=== PATIENT | female | born 1975 | race Caucasian/White ===

== ENCOUNTER → 2017-06-06 | Outpatient (CLI) | payer BC, SELFPAY | PROVIDERS: Family Provider Internal Medicine Adolescent Medicine; Visit Provider Nurse Practitioner Family | DX: R01.1 Cardiac murmur, unspecified (principal) | CPT/HCPCS: 93306 ==

== ENCOUNTER → 2019-05-21 12:12 | Outpatient (CLI) | payer BC, SELFPAY ==
--- NOTE | 2019-05-21 12:19 | XR_ITS ---
PROCEDURE: XR FOOT RT MIN 3V CLINICAL INDICATION: ACUTE RT FOOT/ANKLE PAIN after twisting injury COMPARISON: No exams were available for comparison FINDINGS: No fracture or dislocation. No lytic or blastic change. There is normal mineralization. The joint spaces are well-preserved. No significant degenerative/arthritic changes. No erosive changes evident. Other findings:There is a small spur of the calcaneus at the insertion of the plantar tendon. The plantar arch is normal. IMPRESSION: No acute findings. Dictated by: Dr. Ace Bermudez MD 05/21/2019 12:[address] Ace Bermudez MD in [place] 05/21/2019 12:35
--- NOTE | 2019-05-21 12:19 | XR_ITS ---
PROCEDURE: XR ANKLE RT MIN 3V CLINICAL INDICATION: ACUTE RT FOOT/ANKLE PAIN COMPARISON: No exams were available for comparison FINDINGS: There is no significant soft tissue swelling. The medial and lateral malleolus appear intact. Ankle mortise is normal. The talus and calcaneus appear normal except for a tiny spur of the calcaneus at the insertion of the plantar tendon. IMPRESSION: No acute findings. Dictated by: Dr. Ace Bermudez MD 05/21/2019 12:[address] Ace Bermudez MD in [facility] 05/21/2019 12:34
== END ==
PROVIDERS: PCP Nurse Practitioner Family; Visit Provider Nurse Practitioner Family
DX: M79.671 Pain in right foot (principal); M25.571 Pain in right ankle and joints of right foot
CPT/HCPCS: 73610; 73630

== ENCOUNTER → 2019-06-14 10:38 | Outpatient (CLI) | payer BC, SELFPAY ==
--- NOTE | 2019-06-14 10:40 | CT_ITS ---
PROCEDURE: CT SINUS WO CON CLINICAL HISTORY: MAXILLARY SINUSITIS COMPARISON: No exams were available for comparison TECHNIQUE: Axial images obtained with sagittal and coronal reformats. All CT scans at the facility use one or more dose reduction, viz: automated exposure control, ma/kV adjustment per patient size (including targeted exams where dose is matched to indication, i.e. head), or iterative reconstruction technique. FINDINGS: There is total occlusion of the right maxillary sinus likely due to inflammatory fluid. There is occlusion of the OMU right-side. The left maxillary sinus is clear. There is minimal inflammatory changes of the right ethmoid sinuses, left ethmoids are clear. Frontal sinuses are hypoplastic but clear and the sphenoid sinus is clear. There is no significant bony thickening of the right maxillary sinus suggesting at the findings are most likely acute or semi acute. The mastoids are clear bilaterally, both internal auditory canals are normal. IMPRESSION: Prominent inflammatory changes probably acute and semi acute involving the right maxillary sinus and right OMU Dictated by: Dr. Ace Bermudez MD 06/14/2019 11:[address] Ace Bemrudez MD in [facility] 06/14/2019 11:48
== END ==
PROVIDERS: PCP Nurse Practitioner Family; Visit Provider Nurse Practitioner Family
DX: J32.0 Chronic maxillary sinusitis (principal)
CPT/HCPCS: 70486

== ENCOUNTER 2019-10-06 17:39 | Inpatient (IN) | payer BC, SELFPAY ==
--- NOTE | 2019-10-06 13:03 | CT_ITS ---
PROCEDURE: CT ABDOMEN PELVIS WO CON CLINICAL INDICATION: LT FLANK PAIN, HEMATURIA, CHILLS,FEVER COMPARISON: No exams were available for comparison TECHNIQUE: Axial images obtained with sagittal and coronal reformats. All CT scans at the facility use one or more dose reduction, viz: automated exposure control, ma/kV adjustment per patient size (including targeted exams where dose is matched to indication, i.e. head), or iterative reconstruction technique. FINDINGS: LOWER THORAX: No acute finding ABDOMEN & PELVIS: Liver, spleen, adrenal glands have an unremarkable appearance. No hydronephrosis is evident. There is a 2 mm nonobstructing stone in the lower pole of the left kidney. No ureteral calculi. There is some stranding of the peripancreatic fat in the left upper quadrant at the tail the pancreas with minimal blurring of the pancreatic outline consistent with mild acute pancreatitis. No abscess or pancreatic gas evident. There is some slight increased density along the posterior aspect of the gallbladder which could be due to some small stones and/or sludge and may be better evaluated with ultrasound. There are few small retroperitoneal lymph nodes. No evidence of appendicitis or diverticulitis. There is an IUD in place. No pelvic mass or fluid collection evident. No acute bony anomaly. Small amount of gas is noted in the right hip joint and could be due to negative pressure. Subarticular cyst is present in the right acetabular roof. IMPRESSION: 1. Stranding of the peripancreatic fat at the tail the pancreas suggesting mild acute pancreatitis. 2. Nonobstructing left nephrolithiasis. 3. Possible gallbladder sludge or stones. Gallbladder ultrasound may provide further evaluation if clinically desired. Dictated by: Noah Garcia MD 10/06/2019 13:59 Electronically signed by Noah Garcia MD in [place] 10/06/2019 13:59
[2019-10-06 14:12] LABS: Alanine Aminotransferase 38 U/L (12-78); Albumin Level 4.8 g/dl (3.5-5.0); Albumin/Globulin Ratio 1.6 (1.1-1.8); Amylase 36 U/L (30-110); Anion Gap 15.6 mEq/L (5-15); Aspartate Amino Transferase 34 U/L (14-36); Blood Urea Nitrogen 7 mg/dl (7-17); Carbon Dioxide 29 mmol/L (22.0-30.0); Chloride 96 mmol/L (98-107); Estimated Glomerular Filt Rate 108 ml/min (>60); GFR (African American) 130 ML/MIN (>60); Lipase 154 U/L (23-300); Potassium 3.6 mmoL/L (3.5-5.1); Sodium 137 mmol/L (136-145); Total Protein,Serum 7.8 g/dl (6.3-8.2)
[2019-10-06 14:13] LABS: Alkaline Phosphatase 157 U/L (38-126); Bilirubin,Total 1.3 mg/dl (0.2-1.3); Calcium 10.2 mg/dl (8.4-10.2); Glucose 98 mg/dl (74-100)
[2019-10-06 14:16] LABS: Basophils # 0.1 K/mm3 (0-0.2); Basophils % 0.4 % (0.1-2.0); Eosinophils # 0.1 K/mm3 (0.0-0.4); Eosinophils % 0.6 % (0.1-12.0); Hematocrit 39.6 % (37.0-47.0); Hemoglobin 13.2 g/dL (12.2-16.2); Lymphocytes # 1.4 K/mm3 (0.7-4.5); Lymphocytes % 9.8 % (10-50); Mean Corpuscular HGB Conc 33.3 g/dL (31.8-35.4); Mean Corpuscular Hemoglobin 29.6 pg (27.0-31.2); Mean Platelet Volume 9.1 fl (7.4-10.4); Monocytes # 0.4 K/mm3 (0.1-1.0); Monocytes % 2.8 % (1.7-9.3); Neutrophils # 12.6 K/mm3 (1.8-7.8); Neutrophils % 86.4 % (37.0-80.0); Platelet Count 348 K/mm3 (142-424); Red Blood Count 4.44 M/mm3 (4.20-5.40); White Blood Count 14.6 K/mm3 (4.8-10.8)
[2019-10-06 14:18] LABS: MANUAL DIFFERENTIAL MANUAL DIFFERENTIAL (MANUAL DIFF)
[2019-10-06 17:55] VITALS: BP 147/81; PULSE 89; RESP 18; TEMP 36.9; O2SAT 99
[2019-10-06 18:18] VITALS: BMI 35.6
[2019-10-06 18:30] LABS: Lymphocytes % 9 % (10-50); Monocytes % 3 % (2-9); Neutrophils % 88 % (42-76); Platelet Estimate Normal; RBC Morphology Normal; Total Cells Counted 100
[2019-10-06 19:42] VITALS: BP 118/76; PULSE 72; RESP 18; TEMP 36.5; O2SAT 98
--- NOTE | 2019-10-06 19:53 | HMH.HP ---
*Admission Date: 10/06/19 *Chief complaint: Left upper quadrant pain and fever *History of present illness: 44 yr old female initially evaluated in clinic with complaints of left upper quadrant pain over the past week. Pain initially was colicky in nature and tolerable but acute increase in severity over the past 24 hours. New onset fever and vomiting over the past 24 hours as well, Tmax 101.8. Pain is now more sharp and constant and radiates to the left mid-back and left flank. No diarrhea or constipation. Denies urinary symptoms but she does have known history of left nephrolithiasis noted incidentally on old CT abd/pelvis. Urinalysis in the office revealed trace microscopic blood and she was sent for CT abdomen/pelvis as well as lab evaluation. CT imaging revealed stranding around the pancreatic tail consistent with pancreatitis and gallbladder imaging suggests sludge and possible stones. Non-obstructing left nephrolithiasis. Lab evaluation shows leukocytosis, mildly elevated alkaline phosphatase and normal lipase and amylase. Discussed with Dr Hubbard and admitted for IV antibiotics and additional workup. She has no history of pancreatitis. Denies any recent changes in her medications but she did recently start a dietary supplement for ketone-based diet. [facility] History I have reviewed the patient's past medical history: Yes Medical History: Reports:: Gastroesophageal Reflux Disease(GERD), Hypertension Denies:: Cancer, Diabetes Mellitus Type 1, Diabetes Mellitus Type 2, MRSA *Have you ever received a pneumonia vaccine?: No *Have you received a flu vaccine this season?: Yes Other Medical History: Reports: Sinus Problems Laterality Cases: Bilateral: Tonsillectomy Other Surgeries: Yes: , EGD, Other (C-spine) Amputation: No Fractures: No - *Social History Educational Level: Completed College Smoking Status: Never smoker Alcohol Intake: never Substance Use Type: denies use *Occupational Status:: employed Housing: house Household Members: spouse, children *Travel in the last 8 weeks: None Family Hx:: Cancer, Coronary Artery Disease, Hyperlipidemia, Hypertension, Kidney Disease, Stroke Review of Systems - Review of Systems Review of systems:: pertinent systems reviewed and negative unless documented below - Constitutional Reports fever(s), Reports malaise - *Cardiovascular Denies shortness of breath - *Respiratory Reports pain on inspiration, Denies cough - *Gastrointestinal Reports abdominal pain, Reports feeling full early, Reports nausea, Reports vomiting, Denies vomiting blood, Denies loose stools - *Musculoskeletal Reports back pain - Integumentary/Breasts Denies rash Meds Home Medications Medication Instructions Recorded Confirmed Type Cholecalciferol (Vitamin D3) 1,000 unit PO DAILY 02/07/19 10/06/19 History [Vitamin D3 1,000 Unit Cap] Levocetirizine Dihydrochloride 5 mg PO DAILY 02/07/19 10/06/19 History [Xyzal] Losartan/Hydrochlorothiazide 1 each PO DAILY 02/07/19 10/06/19 History [Hyzaar 50-12.5 Tablet] Omeprazole Magnesium [Prilosec Otc 20 mg PO DAILY 02/07/19 10/06/19 History 20mg Tab] hydroCHLOROthiazide [HCTZ 12.5mg 12.5 mg PO DAILY 02/07/19 10/06/19 History cap] polyethylene glycoL 3350 [Miralax 17 gm PO DAILY 10/06/19 10/06/19 History Powder] Allergies Allergy/AdvReac Type Severity Reaction Status Date / Time vancomycin Allergy Verified 08/08/19 10:51 Exam Vital signs and Labs for Last 24 Hours: Temp Pulse Resp BP Pulse Ox 97.7 F 72 18 118/76 98 10/06/19 19:42 10/06/19 19:42 10/06/19 19:42 10/06/19 19:42 10/06/19 19:42 Laboratory Results - last 24 hr 10/06/19 13:18: Sodium 137, Potassium 3.6, Chloride 96 L, Carbon Dioxide 29, Anion Gap 15.6 H, BUN 7, Creatinine 0.60, Estimated GFR 108, Est GFR ( Amer) 130, Glucose 98, Calcium 10.2, Total Bilirubin 1.3, AST 34, ALT 38, Alkaline Phosphatase 157 H, Total Protein 7.8, Albumin
[2019-10-06 20:00] VITALS: O2SAT 98
[2019-10-07 04:00] VITALS: BP 103/62; PULSE 84; RESP 17; TEMP 36.7; O2SAT 97
[2019-10-07 05:11] VITALS: BMI 36.3
--- NOTE | 2019-10-07 05:37 | PC.NURSE ---
Pt rested in long intervals. C/o nausea at start of shift relieved by zofran per AUG. Voiding w/o reported difficulty independently. No other complaints reported. Tenderness to LUQ w/ palpitation.
[2019-10-07 06:05] LABS: Basophils % 0.2 % (0.1-2.0); Eosinophils # 0.2 K/mm3 (0.0-0.4); Eosinophils % 2.2 % (0.1-12.0); Hematocrit 36.3 % (37.0-47.0); Lymphocytes # 1.4 K/mm3 (0.7-4.5); Mean Corpuscular HGB Conc 32.6 g/dL (31.8-35.4); Mean Corpuscular Hemoglobin 29.5 pg (27.0-31.2); Mean Corpuscular Volume 90.5 fl (81-99); Mean Platelet Volume 8.9 fl (7.4-10.4); Monocytes # 0.4 K/mm3 (0.1-1.0); Monocytes % 4.4 % (1.7-9.3); Neutrophils # 7.5 K/mm3 (1.8-7.8); Neutrophils % 78.2 % (37.0-80.0); Platelet Count 308 K/mm3 (142-424); Red Blood Count 4.01 M/mm3 (4.20-5.40); White Blood Count 9.6 K/mm3 (4.8-10.8)
[2019-10-07 06:19] LABS: Hemoglobin 11.8 g/dL (12.2-16.2)
[2019-10-07 06:20] LABS: Chloride 101 mmol/L (98-107); Potassium 3.7 mmoL/L (3.5-5.1); Sodium 138 mmol/L (136-145)
[2019-10-07 06:23] LABS: Alanine Aminotransferase 29 U/L (12-78); Albumin Level 3.7 g/dl (3.5-5.0); Alkaline Phosphatase 123 U/L (38-126); Amylase 38 U/L (30-110); Anion Gap 11.7 mEq/L (5-15); Aspartate Amino Transferase 25 U/L (14-36); Bilirubin,Total 0.9 mg/dl (0.2-1.3); Blood Urea Nitrogen 8 mg/dl (7-17); Carbon Dioxide 29 mmol/L (22.0-30.0); Creatinine Clearance Estimated 165 mL/min (50-200); Estimated Glomerular Filt Rate 108 ml/min (>60); GFR (African American) 130 ML/MIN (>60); Glucose 84 mg/dl (74-100); Lipase 66 U/L (23-300)
[2019-10-07 06:24] LABS: Albumin/Globulin Ratio 1.1 (1.1-1.8); Globulin 3.3 g/dL (1.3-3.2)
[2019-10-07 06:32] LABS: Calcium 8.8 mg/dl (8.4-10.2)
--- NOTE | 2019-10-07 07:31 | HMH.ACPN2 ---
Internal Medicine - PN: Subj *Date: 10/07/19 *Time: 08:55 Interval history: Ms. Hazel did well overnight. Still having left upper quadrant abdominal pain though nausea resolved. Labs this morning reviewed and appear improved with decreasing liver enzymes and improvement in her lipase level. Planning for ultrasound this morning. CT reviewed showing questionable sludge versus stones in gallbladder and stranding around the tail of the pancreas. Patient remains hemodynamically stable, afebrile. Exam Vital signs and Labs for Last 24 Hours: Temp Pulse Resp BP Pulse Ox 98.0 F 84 17 103/62 L 97 10/07/19 04:00 10/07/19 04:00 10/07/19 04:00 10/07/19 04:00 10/07/19 04:00 Laboratory Results - last 24 hr 10/06/19 13:18: Sodium 137, Potassium 3.6, Chloride 96 L, Carbon Dioxide 29, Anion Gap 15.6 H, BUN 7, Creatinine 0.60, Estimated GFR 108, Est GFR ( Amer) 130, Glucose 98, Calcium 10.2, Total Bilirubin 1.3, AST 34, ALT 38, Alkaline Phosphatase 157 H, Total Protein 7.8, Albumin 4.8, Globulin 3.0, Albumin/Globulin Ratio 1.6, Amylase 36, Lipase 154 10/06/19 13:18: WBC 14.6 H, RBC 4.44, Hgb 13.2, Hct 39.6, MCV 89.0, MCH 29.6, MCHC 33.3, RDW 14.0, Plt Count 348, MPV 9.1, Neut % (Auto) 86.4 H, Lymph % (Auto) 9.8 L, Dawson % (Auto) 2.8, Eos % (Auto) 0.6, Baso % (Auto) 0.4, Neut # (Auto) 12.6 H, Lymph # (Auto) 1.4, Dawson # (Auto) 0.4, Eos # (Auto) 0.1, Baso # (Auto) 0.1, Total Counted 100, Neutrophils % (Manual) 88 H, Lymphocytes % (Manual) 9 L, Monocytes % (Manual) 3, Platelet Estimate Normal, RBC Morphology Normal 10/07/19 05:48: WBC 9.6 D, RBC 4.01 L, Hgb 11.8 L D, Hct 36.3 L, MCV 90.5, MCH 29.5, MCHC 32.6, RDW 14.0, Plt Count 308, MPV 8.9, Neut % (Auto) 78.2, Lymph % (Auto) 15.0, Dawson % (Auto) 4.4, Eos % (Auto) 2.2, Baso % (Auto) 0.2, Neut # (Auto) 7.5, Lymph # (Auto) 1.4, Dawson # (Auto) 0.4, Eos # (Auto) 0.2, Baso # (Auto) 0.0 10/07/19 05:48: Sodium 138, Potassium 3.7, Chloride 101, Carbon Dioxide 29, Anion Gap 11.7, BUN 8, Creatinine 0.60, Estimated Creat Clear 165, Estimated GFR 108, Est GFR ( Amer) 130, Glucose 84, Calcium 8.8 D, Total Bilirubin 0.9, AST 25 D, ALT 29, Alkaline Phosphatase 123, Total Protein 7.0, Albumin 3.7 D, Globulin 3.3 H, Albumin/Globulin Ratio 1.1, Amylase 38, Lipase 66 I & O for Last 24 hours: Intake & Output 10/04/19 10/05/19 10/06/19 10/07/19 23:59 23:59 23:59 23:59 Intake Total 1216 / 1216 Output Total 200 / 200 Balance 1016 / 1016 Weight 88.479 kg 89.443 kg Narrative: - Constitutional No acute distress, obese - *Routine HEENT Exam Head: Present: normocephalic Eye: Present: conjunctivae pink ENT: Present: mucous membranes moist - *Routine Neck Exam Present: supple - *Routine Respiratory Exam Present: CTA bilaterally - *Routine Cardiovascular Exam Present: RRR. Absent: murmur - *Routine Abdominal Exam Present: soft, tenderness (Left upper quadrant and left flank), no rebound, minimal guarding - *Routine Extremities Exam Present: pulses intact. Absent: clubbing, edema - *Routine Skin Exam Present: intact, warm. Absent: rash - *Routine Neurological Exam Present: alert, oriented X3 Assessment and Plan (1) Acute pancreatitis Current visit: Yes Status: Acute Category: Medical Code(s): K85.90 - Acute pancreatitis without necrosis or infection, unspecified (2) Leukocytosis Current visit: Yes Status: Acute Category: Medical Code(s): D72.829 - Elevated white blood cell count, unspecified (3) Gallbladder sludge Current visit: Yes Status: Acute Category: Medical Code(s): K82.8 - Other specified diseases of gallbladder (4) Left upper quadrant pain Current visit: Yes Status: Acute Category: Medical Code(s): R10.12 - Left upper quadrant pain (5) Obesity (BMI 30-39.9) Current visit: Yes Status: Chronic Category: Medical Code(s): E66.9 - Obesity, unspecified (6) Left nephrolithiasis Current visit: Yes St
--- NOTE | 2019-10-07 07:35 | P.CONPHA_ITS ---
[facility] Pharmacy VTE Monitoring - Patient Demographics Admission date: 10/07/19 Report Date: 10/07/19 Time: 07:35 Allergies/Adverse Reactions: Patient Allergies vancomycin Allergy (Verified 08/08/19 10:51) Height: 1.57 m Weight: 89.443 kg Patient Problems: Current Active Problems Leukocytosis (Acute) Acute pancreatitis (Acute) Gallbladder sludge (Acute) Left upper quadrant pain (Acute) Obesity (BMI 30-39.9) (Chronic) Left nephrolithiasis (Chronic) - VTE Risk Labs: VTE Related Lab Results Hgb 11.8 g/dL (12.2-16.2) L D 10/07/19 05:48 Hct 36.3 % (37.0-47.0) L 10/07/19 05:48 Plt Count 308 K/mm3 (142-424) 10/07/19 05:48 BUN 8 mg/dl (7-17) 10/07/19 05:48 Creatinine 0.60 mg/dl (0.52-1.04) 10/07/19 05:48 Estimated Creat Clear 165 mL/min (50-200) 10/07/19 05:48 Was VTE Risk Assessment Performed: Yes VTE Score: 6 VTE Risk Level: Moderate Risk Clinical Trial Participant: No - Prophylaxis VTE Prophylaxis Ordered?: Yes Types of VTE Prophylaxis: TEDS Knee High
--- NOTE | 2019-10-07 07:38 | HMH.PHAINT ---
HOME MEDICATION RECONCILIATION COMPLETED USING LIST FROM HOME PHARMACY
[2019-10-07 08:00] VITALS: BP 109/67; PULSE 84; RESP 17; TEMP 36.9; O2SAT 97
--- NOTE | 2019-10-07 08:00 | US_ITS ---
PROCEDURE: US ABDOMEN COMPLETE CLINICAL INDICATION: pancreatitis, gallbladder sludge Left upper quadrant pain with nausea and vomiting, abnormal CT scan COMPARISON: RUQ US RUQ-(ABD LTD)1ORGAN/QUAD/FU from 05/23/2017 CT ABDOMEN PELVIS WO CON from 10/06/2019 FINDINGS: PANCREAS: Pancreas is not well demonstrated and better delineated on the recent abdomen CT. The body head of the pancreas has an unremarkable appearance but the tail the pancreas is not well delineated. LIVER: No focal liver lesions demonstrated. Homogeneous echogenicity. No intrahepatic biliary ductal dilatation evident. There is appropriate direction of blood flow within a non dilated portal vein RIGHT KIDNEY: Unremarkable. Normal size and echogenicity. No hydronephrosis LEFT KIDNEY: Unremarkable. Normal size and echogenicity. No hydronephrosis GALLBLADDER: No shadowing stones are evident. There is however suggestion I small amount sludge versus nonshadowing stones in the gravity dependent portion of the gallbladder. No pericholecystic fluid. Common bile duct is normal at 3 mm. No gallbladder wall thickening AORTA: No evidence of aneurysmal dilatation. SPLEEN: Unremarkable. Normal size and echogenicity ASCITES: None demonstrated. IMPRESSION: 1. There is a small amount of sludge versus nonshadowing tiny stones in the gallbladder. No shadowing stones evident. 2. The tail the pancreas is not well delineated. Dictated by: Noah Garcia MD 10/07/2019 11:51 Electronically signed by Noah Garcia MD in [place] 10/07/2019 11:51
--- NOTE | 2019-10-07 10:54 | PC.NURSE ---
THIS RN RECEIVED A PHONE CALL FROM DR. DAHL OFFICE STATING THAT MD WILL SEE PATIENT 10/08/2019 DUE TO HESHAM NOT BEING IN THE OFFICE TODAY.
[2019-10-07 16:00] VITALS: BP 120/77; PULSE 75; RESP 16; TEMP 36.8; O2SAT 100
[2019-10-07 19:38] VITALS: BP 119/81; PULSE 77; RESP 16; TEMP 36.8; O2SAT 99
--- NOTE | 2019-10-08 01:48 | PC.NURSE ---
A&OX3. PERRLA, [employer] EQUAL BILAT. LUNG SOUNDS CLEAR T/O AUSCULTATION. TOLERATED RA WELL. ABDOMEN NONDISTENDED, HYPERACTIVE BOWEL SOUNDS IN LUQ OF ABDOMEN, SOFT AND MILD TENDERNESS PER PALPATION OF LUQ OF ABDOMEN. PT C/O NAUSEA AT BEGINNING OF SHIFT. PT STATED I WAS DOING GOOD UNTIL I ATE MY CLEAR LIQUID SUPPER TRAY AND EVER SINCE THEN I HAVE GOTTEN BLOATED AND NOW I FEEL NAUSEOUS. ADMINISTERED PRN ZOFRAN PER AUG. PULSES +2, CAP REFILL <3 SEC. INDEPENDENT WITH ADLS. NPO AFTER MIDNIGHT AND IS AWARE OF NEED FOR BATH FOR CONSULT. PT REQUESTED TO TAKE A BATH IN MORNING, PRIOR TO CONSULT. VSS. WILL CONTINUE TO MONITOR.
[2019-10-08 04:00] VITALS: BP 104/63; PULSE 79; RESP 16; TEMP 36.7; O2SAT 97
[2019-10-08 05:00] VITALS: BMI 36.8
[2019-10-08 06:05] LABS: Basophils % 0.3 % (0.1-2.0); Eosinophils # 0.2 K/mm3 (0.0-0.4); Eosinophils % 2.7 % (0.1-12.0); Hematocrit 32.8 % (37.0-47.0); Lymphocytes # 1.7 K/mm3 (0.7-4.5); Lymphocytes % 24.3 % (10-50); Mean Corpuscular HGB Conc 33.5 g/dL (31.8-35.4); Mean Corpuscular Volume 89.7 fl (81-99); Mean Platelet Volume 8.3 fl (7.4-10.4); Monocytes # 0.3 K/mm3 (0.1-1.0); Neutrophils # 4.7 K/mm3 (1.8-7.8); Neutrophils % 68.6 % (37.0-80.0); Platelet Count 297 K/mm3 (142-424); Red Blood Count 3.65 M/mm3 (4.20-5.40); White Blood Count 6.9 K/mm3 (4.8-10.8)
[2019-10-08 06:08] LABS: Chloride 106 mmol/L (98-107); Potassium 3.6 mmoL/L (3.5-5.1); Sodium 140 mmol/L (136-145)
[2019-10-08 06:10] LABS: Blood Urea Nitrogen 5 mg/dl (7-17); Creatinine Clearance Estimated 202 mL/min (50-200); Estimated Glomerular Filt Rate 133 ml/min (>60); GFR (African American) 161 ML/MIN (>60)
[2019-10-08 06:11] LABS: Alanine Aminotransferase 21 U/L (12-78); Albumin Level 3.3 g/dl (3.5-5.0); Albumin/Globulin Ratio 1.1 (1.1-1.8); Alkaline Phosphatase 105 U/L (38-126); Anion Gap 10.6 mEq/L (5-15); Aspartate Amino Transferase 18 U/L (14-36); Bilirubin,Total 0.6 mg/dl (0.2-1.3); Calcium 8.2 mg/dl (8.4-10.2); Carbon Dioxide 27 mmol/L (22.0-30.0); Globulin 2.9 g/dL (1.3-3.2); Glucose 83 mg/dl (74-100); Total Protein,Serum 6.2 g/dl (6.3-8.2)
--- NOTE | 2019-10-08 07:46 | HMH.ACPN2 ---
Internal Medicine - PN: Subj *Date: 10/08/19 *Time: 11:30 Interval history: Patient did well overnight. Did have some intolerance of clear liquid diet with recurrence of her abdominal pain. No vomiting or diarrhea. Remains afebrile. Hemodynamically stable. Reviewed labs this morning, liver enzymes normal. Spoke to gastroenterology yesterday, planning to see patient today. Exam Vital signs and Labs for Last 24 Hours: Temp Pulse Resp BP Pulse Ox 98.1 F 79 16 104/63 L 97 10/08/19 04:00 10/08/19 04:00 10/08/19 04:00 10/08/19 04:00 10/08/19 04:00 Laboratory Results - last 24 hr 10/08/19 05:48: WBC 6.9 D, RBC 3.65 L, Hgb 11.0 L, Hct 32.8 L, MCV 89.7, MCH 30.0, MCHC 33.5, RDW 14.0, Plt Count 297, MPV 8.3, Neut % (Auto) 68.6, Lymph % (Auto) 24.3, Sunflower % (Auto) 4.0, Eos % (Auto) 2.7, Baso % (Auto) 0.3, Neut # (Auto) 4.7, Lymph # (Auto) 1.7, Sunflower # (Auto) 0.3, Eos # (Auto) 0.2, Baso # (Auto) 0.0 10/08/19 05:48: Sodium 140, Potassium 3.6, Chloride 106, Carbon Dioxide 27, Anion Gap 10.6, BUN 5 L D, Creatinine 0.50 L, Estimated Creat Clear 202, Estimated GFR 133, Est GFR ( Amer) 161 D, Glucose 83, Calcium 8.2 L, Total Bilirubin 0.6, AST 18 D, ALT 21 D, Alkaline Phosphatase 105, Total Protein 6.2 L, Albumin 3.3 L D, Globulin 2.9, Albumin/Globulin Ratio 1.1 I & O for Last 24 hours: Intake & Output 10/05/19 10/06/19 10/07/19 10/08/19 23:59 23:59 23:59 23:59 Intake Total 2212 / 2212 1118 / 1118 Output Total 500 / 500 900 / 900 Balance 1712 / 1712 218 / 218 Weight 88.479 kg 89.443 kg 90.917 kg Narrative: - Constitutional No acute distress, obese - *Routine HEENT Exam Head: Present: normocephalic Eye: Present: conjunctivae pink ENT: Present: mucous membranes moist - *Routine Neck Exam Present: supple - *Routine Respiratory Exam Present: CTA bilaterally - *Routine Cardiovascular Exam Present: RRR. Absent: murmur - *Routine Abdominal Exam Present: soft, overall improvement with very minimal tenderness (Left upper quadrant), no rebound or guarding - *Routine Extremities Exam Present: pulses intact. Absent: clubbing, edema - *Routine Skin Exam Present: intact, warm. Absent: rash - *Routine Neurological Exam Present: alert, oriented X3 Assessment and Plan (1) Acute pancreatitis Current visit: Yes Status: Acute Category: Medical Code(s): K85.90 - Acute pancreatitis without necrosis or infection, unspecified (2) Leukocytosis Current visit: Yes Status: Acute Category: Medical Code(s): D72.829 - Elevated white blood cell count, unspecified (3) Gallbladder sludge Current visit: Yes Status: Acute Category: Medical Code(s): K82.8 - Other specified diseases of gallbladder (4) Left upper quadrant pain Current visit: Yes Status: Acute Category: Medical Code(s): R10.12 - Left upper quadrant pain (5) Obesity (BMI 30-39.9) Current visit: Yes Status: Chronic Category: Medical Code(s): E66.9 - Obesity, unspecified (6) Left nephrolithiasis Current visit: Yes Status: Chronic Category: Medical Code(s): N20.0 - Calculus of kidney - Assessment and plan all Dx Assessment and Plan for all problems:: Symptoms appear to be improving. Ultrasound showing sludge for small stones. Gastroenterology consulted, appreciate recommendations. If no plan for intervention such as EGD or ERCP, will advance diet today and assess response. Plan for follow-up with surgery in the outpatient setting to discuss nonemergent cholecystectomy. Continues to require inpatient management for diet advancement and symptom control. Anticipate discharge in the coming 1 to 2 days
[2019-10-08 08:00] VITALS: BP 116/75; PULSE 75; RESP 16; TEMP 36.6; O2SAT 99
--- NOTE | 2019-10-08 12:53 | P.PCN_ITS ---
[facility] Procedure Note Procedure Note:: Gastroenterology Consultation Date of Service-October 08, 2019 History of Present Illness: Mrs. Hazel is a 44-year-old female who presented with left upper quadrant abdominal pain and some low-grade fever. Her T-max was 101.8. This was sharp and radiated into the left flank. She did have some abdominal bloating and nausea. Upon presentation to the hospital she had a CAT scan that showed stranding around the pancreatic tail consistent with pancreatitis. Her imaging did show some sludge and possible stones within the gallbladder. She had a normal lipase and amylase but her alkaline phosphatase was mildly elevated. She had a subsequent ultrasound that showed a 3 mm common bile duct. The patient initially did have an elevated white blood cell count of 14.6 thousand. Her liver chemistries have normalized. Her initial alkaline phosphatase was 157 and she was not jaundiced. This is her first bout of pancreatitis. She reports no use of alcohol. She reports no family history of pancreatitis. Past Medical History: 1. Hypertension 2. Chronic sinusitis Past Surgical History: 1. Tonsillectomy 2. 3. Prior EGD Medications: 1. Hyzaar 2. Prilosec OTC 3. HCTZ 4. MiraLAX ALLERGIES: 1. Vancomycin Social History: The patient reports no use of alcohol or tobacco. Family History: Noncontributory Review of Systems: Physical Exam: Physical Examination: Gen.: The patient is a well-developed well-nourished individual in no acute distress HEENT: Normocephalic/atraumatic extraocular movements are intact anicteric Neck: Supple no lymphadenopathy Chest: Clear to auscultation Cardiovascular: Regular rate and rhythm Abdomen: Normoactive bowel sounds soft with some mild to moderate tenderness in the epigastrium, periumbilical and left upper quadrant, no rebound or guarding, no masses, no Fernández sign no hepatosplenomegaly Extremities: No edema Labs: WBC 14.6, alkaline phosphatase 157, albumin 4.8, total bilirubin 1.3, ALT 38, amylase 36 and lipase 154 Radiology: As above Impression/Plan: 1. Acute pancreatitis and probable gallstone pancreatitis with the mild el evation of alkaline phosphatase that normalized. The patient's ultrasound and CAT scan did not show any biliary ductal dilation and her liver chemistries have normalized. I would recommend elective outpatient cholecystectomy. She will not require ERCP presently. I would consider intraoperative cholangiogram (Dr. Sunny Haywood). Certainly if she has no filling defects cholangiographically, she would not need ERCP. I would consider MRCP or ERCP if she has any recurrent bouts of pancreatitis in the future.
[2019-10-08 16:00] VITALS: BP 141/86; PULSE 83; RESP 16; TEMP 36.6; O2SAT 99
--- NOTE | 2019-10-08 18:55 | PC.NURSE ---
PATIENT HAS TOLERATED DIET WELL. SHE DENIES PAIN OR NAUSEA AT THIS TIME. FLUIDS HAVE BEEN DC. CALL LIGHT WITHIN REACH WILL CONTINUE TO MONITOR.
[2019-10-08 20:00] VITALS: BP 130/71; PULSE 77; RESP 20; TEMP 36.8; O2SAT 97
--- NOTE | 2019-10-09 02:46 | PC.NURSE ---
A&O X4. PT RESTED WELL WITH EYES CLOSED T/O SHIFT WITH NO C/O PAIN. DENIES PAIN UPON ABDOMINAL PALPATION. TOLERATED REGULAR DIET AT DINNER WELL PER DAY SHIFT RN. TOLERATED RA WELL WITH NO C/O SOA. BILATERAL LUNGS NOTED CLEAR UPON AUSCULTATION. REFUSED TEDS. VSS. REMAINS SAFE. CALL LIGHT WITHIN REACH. WILL CONTINUE TO MONITOR.
[2019-10-09 04:00] VITALS: BP 126/74; PULSE 77; RESP 16; TEMP 36.6; O2SAT 97
[2019-10-09 05:00] VITALS: BMI 37.4
[2019-10-09 07:38] VITALS: BP 132/85; PULSE 76; RESP 19; TEMP 36.9; O2SAT 96
--- NOTE | 2019-10-09 08:44 | HMH.DCSUM ---
General - General Admission date:: 10/06/19 Discharge date: 10/09/19 HPI HPI: 44 yr old female initially evaluated in clinic with complaints of left upper quadrant pain over the past week. Pain initially was colicky in nature and tolerable but acute increase in severity over the past 24 hours. New onset fever and vomiting over the past 24 hours as well, Tmax 101.8. Pain is now more sharp and constant and radiates to the left mid-back and left flank. No diarrhea or constipation. Denies urinary symptoms but she does have known history of left nephrolithiasis noted incidentally on old CT abd/pelvis. Urinalysis in the office revealed trace microscopic blood and she was sent for CT abdomen/pelvis as well as lab evaluation. CT imaging revealed stranding around the pancreatic tail consistent with pancreatitis and gallbladder imaging suggests sludge and possible stones. Non-obstructing left nephrolithiasis. Lab evaluation shows leukocytosis, mildly elevated alkaline phosphatase and normal lipase and amylase. Discussed with Dr Hubbard and admitted for IV antibiotics and additional workup. She has no history of pancreatitis. Denies any recent changes in her medications but she did recently start a dietary supplement for ketone-based diet. Hospital Course Hospital Course: Patient was admitted, found to have evidence of gallstone pancreatitis via ultrasonography and CT scan. Patient improved with fluids and bowel rest. GI was consulted, recommended against ERCP given clinical improvement and normalizing enzymes, diet was restarted and patient did well with this. This morning she was doing well, recommended to be discharged home, she will follow-up with surgery as an outpatient for laparoscopic cholecystectomy evaluation along with consideration for intraoperative cholangiogram. She will be discharged on losartan only for blood pressure, HCTZ will be discontinued because of the risk of pancreatitis. We will follow her in office in 1-1/2 weeks. Surgery in the next week or 2. Lasix for as needed edema use. Objective Vital signs: Temp Pulse Resp BP Pulse Ox 98.4 F 76 19 132/85 96 10/09/19 07:38 10/09/19 07:38 10/09/19 07:38 10/09/19 07:38 10/09/19 07:38 no acute distress - *Routine HEENT Exam Head: Present: normocephalic Eye: Present: EOMI, PERRL ENT: Present: mucous membranes moist - *Routine Neck Exam Present: supple - *Routine Respiratory Exam Present: CTA bilaterally - *Routine Cardiovascular Exam Present: RRR - *Routine Abdominal Exam Present: soft, normoactive bowel sounds. Absent: tenderness - *Routine Extremities Exam Absent: cyanosis, clubbing, edema - *Routine Skin Exam Present: warm. Absent: rash - Detailed Eye Exam Eyelids: Bilateral normal inspection Results Labs on day of discharge: Preliminary micro results at discharge 10/06/19 18:30 Blood Culture - Preliminary Blood NO GROWTH AFTER 48 HOURS 10/06/19 18:38 Blood Culture - Preliminary Blood NO GROWTH AFTER 48 HOURS DS: Diagnosis - Discharge Diagnosis (1) Acute pancreatitis Status: Resolved (2) Leukocytosis Status: Resolved (3) Gallbladder sludge Status: Chronic (4) Left upper quadrant pain Status: Resolved (5) Obesity (BMI 30-39.9) Status: Chronic (6) Left nephrolithiasis Status: Chronic (7) Hypertension, essential Status: Chronic Discharge Plan - Patient Discharge Instructions ACTIVITY: Continue current activity DIET: low fat, low cholesterol Patient Instructions: Gallstones, DI for Pancreatitis, DI for Leukocytosis - Follow up Plan Follow up with: Julia Cabrales APRN [Nurse Practitioner] - 10/20/19 9:15 am Sunny Haywood MD [Staff Physician] - 1 week Disposition: Home, Self-Fdc Medications: Home Medications Medication Instructions Recorded Confirmed Type Cholecalciferol (Vitamin D3) 1,000 unit PO DAILY 02/07/19 10/06/19 Wy
== END 2019-10-09 10:28 | disposition home or self-care (01) | DRG 440 ==
PROVIDERS: Internal Medicine Adolescent Medicine; Nurse Practitioner Family; Admitting Provider Internal Medicine Adolescent Medicine; PCP Internal Medicine Adolescent Medicine; Visit Provider Internal Medicine Adolescent Medicine
DX: K85.10 Biliary acute pancreatitis without necrosis or infection (principal); I10 Essential (primary) hypertension; N20.0 Calculus of kidney; Z79.899 Other long term (current) drug therapy
CPT/HCPCS: 36415; 74176; 76700; 80053; 82150; 83690; 85007; 85025; 87040; J1335; J2405

== ENCOUNTER → 2019-11-04 08:22 | Outpatient (CLI) | payer BC, SELFPAY ==
[2019-11-04 08:54] LABS: Basophils % 0.2 % (0.1-2.0); Eosinophils # 0.1 K/mm3 (0.0-0.4); Eosinophils % 1.2 % (0.1-12.0); Hematocrit 39.2 % (37.0-47.0); Hemoglobin 12.5 g/dL (12.2-16.2); Lymphocytes # 1.5 K/mm3 (0.7-4.5); Lymphocytes % 16.8 % (10-50); Mean Corpuscular HGB Conc 31.9 g/dL (31.8-35.4); Mean Corpuscular Hemoglobin 29.1 pg (27.0-31.2); Mean Corpuscular Volume 91.4 fl (81-99); Mean Platelet Volume 8.5 fl (7.4-10.4); Monocytes # 0.3 K/mm3 (0.1-1.0); Monocytes % 3.4 % (1.7-9.3); Neutrophils # 7.2 K/mm3 (1.8-7.8); Neutrophils % 78.2 % (37.0-80.0); Platelet Count 331 K/mm3 (142-424); Red Blood Count 4.29 M/mm3 (4.20-5.40); Red Cell Distribution Width 14.4 % (11.5-17.5); White Blood Count 9.1 K/mm3 (4.8-10.8)
[2019-11-04 08:59] LABS: Chloride 99 mmol/L (98-107); Potassium 3.6 mmoL/L (3.5-5.1); Sodium 136 mmol/L (136-145)
[2019-11-04 09:00] LABS: Urine Pregnancy, HCG Qual. Negative (Negative)
[2019-11-04 09:02] LABS: Alanine Aminotransferase 47 U/L (12-78); Alkaline Phosphatase 141 U/L (38-126); Amylase 44 U/L (30-110); Anion Gap 10.6 mEq/L (5-15); Aspartate Amino Transferase 58 U/L (14-36); Bilirubin,Total 1.1 mg/dl (0.2-1.3); Blood Urea Nitrogen 11 mg/dl (7-17); Calcium 8.9 mg/dl (8.4-10.2); Carbon Dioxide 30 mmol/L (22.0-30.0); Estimated Glomerular Filt Rate 108 ml/min (>60); GFR (African American) 130 ML/MIN (>60); Glucose 93 mg/dl (74-100); Lipase 168 U/L (23-300)
[2019-11-04 09:03] LABS: Albumin Level 4.4 g/dl (3.5-5.0); Albumin/Globulin Ratio 1.6 (1.1-1.8); Globulin 2.8 g/dL (1.3-3.2); Total Protein,Serum 7.2 g/dl (6.3-8.2)
[2019-11-04 09:25] LABS: Coronavirus 19 IgG Antibody Negative (Negative); Coronavirus 19 IgM Antibody Negative (Negative)
== END ==
PROVIDERS: Visit Provider Surgery
DX: Z01.818 Encounter for other preprocedural examination (principal); K82.9 Disease of gallbladder, unspecified; K82.8 Other specified diseases of gallbladder
CPT/HCPCS: 36415; 80053; 81025; 82150; 83690; 85025; 86328

== ENCOUNTER 2019-11-05 08:49 | Day surgery (SDC) | payer BC, SELFPAY ==
--- NOTE | 2019-11-02 09:33 | SUR.PREOP ---
11/02/2019 @ 0933--PHONE CALL MADE TO PATIENT. PATIENT UNDERSTANDS THAT LAB WORK AND COVID TESTING NEEDS TO BE COMPLETED @ 0800 ON 11/04/2019. PATIENT UNDERSTANDS IF LAB WORK AND COVID-19 TESTS ARE NOT COMPLETED BY 12PM ON THAT DATE, THE SURGERY SCHEDULED WILL BE CANCELLED AND RESCHEDULED FOR ANOTHER TIME.
[2019-11-04 10:06] VITALS: BMI 36.3
[2019-11-05] VITALS (12 sets, daily range): BP systolic 112–131; BP diastolic 53–78; PULSE 54–81; RESP 17–19; TEMP 36.2–36.9; O2SAT 96–100
--- NOTE | 2019-11-05 09:36 | P.PN_ITS ---
[facility] Anesthesia Checklist - Patient Identification Patient Identification: Arm Band - Structural Data Admitted From: Home Planned Operative Procedure/s: laparoscopic cholecystectomy with cholangiogram Consent for Planned Operative Procedure(s) Verified: Yes Verified Documents: Surgical Consent, History and Physical - NPO Status Verified Time NPO: 00:00 - Additional verifications Anesthesia Reactions: Yes (n/v) Hx Blood Transfusions: No Blood Transfusion Reaction: No - Airway Assessment C-Spine Mobility Assessed: Yes (mp2) TMJ Mobility Assessed: Yes Dentition: Partials (lower) - Neurological Assessment Level of Consciousness: Awake, Alert - Anesthesia Plan Anesthesia Risk discussed: Yes Anesthesia Plan: Verified ASA Class: II Anesthesia Type: General [facility] History I have reviewed the patient's past medical history: Yes Medical History: Reports:: Gastroesophageal Reflux Disease(GERD), Hypertension Denies:: Cancer, Diabetes Mellitus Type 1, Diabetes Mellitus Type 2, Internal Pacemaker, MRSA, Seizures *Have you ever received a pneumonia vaccine?: No *Have you received a flu vaccine this season?: Yes Other Medical History: Reports: Sinus Problems. Denies: Blood Transfusion Reaction Anesthesia experience/problems:: nac Laterality Cases: Bilateral: Tonsillectomy Other Surgeries: Yes: , EGD, Other. No: Pacemaker Amputation: No Fractures: No - *Social History Educational Level: Completed College Smoking Status: Never smoker Alcohol Intake: never Substance Use Type: denies use *Occupational Status:: employed Housing: house Household Members: family *Travel in the last 8 weeks: None Family Hx:: No significant family history
--- NOTE | 2019-11-05 11:51 | HMH.OPNOTE ---
Date of procedure: 11/05/19 Pre-op Diagnosis:: History of gallstone pancreatitis Post-op Diagnosis:: History of gallstone pancreatitis Chronic calculus cholecystitis Procedure performed:: Laparoscopic cholecystectomy (cholangiogram not performed secondary to inability to safely advance the catheter into position within the cystic duct) Surgeon:: Sunny Haywood MD CLINICAL SOCIAL WORKER:: Bijan Saavedra Anesthesia: GETA Estimated blood loss (mL): 15 Operative findings:: Cholangiogram catheter could not be secured secondary to lack of appropriate flow of dye into cystic duct. Clear visualization of cystic duct lumen; however, multiple attempts at advancing the catheter were not successful. Operative note:: After informed consent was obtained, the patient was taken to the operating room and placed in the supine position. General anesthesia was induced and the abdomen was prepped and draped in a sterile fashion. After infiltration with local anesthetic an infraumbilical incision was made. A Veress needle was placed in position. The abdomen was insufflated. A 5 mm optical trocar was placed in position. Under direct visualization, a 12 mm trocar was placed in the subxiphoid position and 2 additional 5 mm trocars were placed in the right upper quadrant. The gallbladder was elevated up and over the liver margin. The tissue around the cystic duct was carefully dissected. A clip was placed at the infundibulum. The dilator and sheath was introduced through a separate right upper quadrant stab incision. A partial otomy was made. The lumen was clearly visualized. The cholangiogram catheter could not be advanced and this was felt to most likely be secondary to either intraluminal scarring or false passage . After multiple attempts were unsuccessful it was deemed most appropriate to forego cholangiogram. Harmonic rafael were then utilized to dissect the gallbladder away from the liver margin with careful attention to the control of the cystic artery. The gallbladder was placed in a retrieval bag and removed through the subxiphoid trocar site. The right upper quadrant was thoroughly irrigated. No active bleeding or bile leak was noted. Fascia at the subxiphoid trocar site was reapproximated utilizing 0 Ethibond. The remaining trocars were removed. All wounds were irrigated and skin was closed with 4-0 Monocryl in a subcuticular fashion. Steri-Strips were applied. The patient's anesthetic agents were reversed and extubation was completed prior to transfer to recovery in stable condition. Condition: stable Disposition: PACU Specimens:: gallbladder Complications:: No immediate
--- NOTE | 2019-11-05 12:01 | HMH.ANESI ---
[facility] Anesthesia Record Part I Intake, IV Amount: 600 Estimated blood loss (mL): 10 Urine output (mL): 0 Blood Products used (#): none Blood Pressure: 127/73 SaO2: 97 Pulse Rate: 66 Respiratory Rate: 18 Temperature: 97.6 F Patient is:: Drowsy, Stable Stable to PACU at:: 11:58
--- NOTE | 2019-11-05 12:50 | HMH.ANESII ---
[facility] Anesthesia Record Part II Discharge Time: 12:28 Destination: Surgical Day Care (OP Surgery) PACU nurse assessment reviewed?: Yes Patient Condition:: Good Anesthesia Complications:: None Swallowing reflex intact?: Yes Cyanosis?: No Blood Pressure: 119/68 Pulse Rate: 57 Temperature: 98.4 F Mental Status: Alert & Oriented Pain level:: 1 Nausea and/or vomitting:: None Intake, IV Amount: 25
== END 2019-11-05 13:35 | disposition home or self-care (01) ==
LOC: OR 08:51
PROVIDERS: PCP Internal Medicine Adolescent Medicine; Visit Provider Surgery
PROC: (CPT 47563; principal; 2019-11-05 10:30)
DX: K81.2 Acute cholecystitis with chronic cholecystitis (principal); K85.10 Biliary acute pancreatitis without necrosis or infection; Z79.899 Other long term (current) drug therapy; Z88.1 Allergy status to other antibiotic agents; I10 Essential (primary) hypertension; K21.9 Gastro-esophageal reflux disease without esophagitis; Z82.49 Family history of ischemic heart disease and other diseases of the circulatory system; Z84.89 Family history of other specified conditions; Z83.438 Family history of other disorder of lipoprotein metabolism and other lipidemia; Z84.1 Family history of disorders of kidney and ureter; Z82.3 Family history of stroke
CPT/HCPCS: 47563; 96374; J2405

== ENCOUNTER → 2021-05-04 18:57 | Outpatient (CLI) | payer BC, SELFPAY ==
[2021-05-04 19:50] LABS: Chloride 101 mmol/L (98-107); Potassium 4.1 mmoL/L (3.5-5.1); Sodium 139 mmol/L (136-145)
[2021-05-04 19:52] LABS: Alanine Aminotransferase 36 U/L (12-78); Aspartate Amino Transferase 39 U/L (14-36); Blood Urea Nitrogen 15 mg/dl (7-17); Estimated Glomerular Filt Rate 107 ml/min (>60); GFR (African American) 130 ML/MIN (>60)
[2021-05-04 19:53] LABS: Albumin Level 4.2 g/dl (3.5-5.0); Albumin/Globulin Ratio 1.6 (1.1-1.8); Alkaline Phosphatase 126 U/L (38-126); Anion Gap 12.1 mEq/L (5-15); Bilirubin,Total 0.6 mg/dl (0.2-1.3); Calcium 8.7 mg/dl (8.4-10.2); Carbon Dioxide 30 mmol/L (22.0-30.0); Chol/HDL Ratio 3.3 (1-3.5); Cholesterol 174 mg/dl (140-200); Globulin 2.7 g/dL (1.3-3.2); Glucose 91 mg/dl (74-100); HDL Cholesterol 52 mg/dl (40-60); Total Protein,Serum 6.9 g/dl (6.3-8.2); Triglycerides 53 mg/dl (30-150); VLDL Cholesterol 11 mg/dL (0-40)
[2021-05-04 20:04] LABS: Direct LDL Cholesterol 117.92 mg/dL (100-129)
[2021-05-05 00:02] LABS: 25-OH Vitamin D, Total 39.8 ng/mL (30-100)
== END ==
PROVIDERS: Visit Provider Nurse Practitioner Family
DX: Z00.00 Encounter for general adult medical examination without abnormal findings (principal); I10 Essential (primary) hypertension; E55.9 Vitamin D deficiency, unspecified
CPT/HCPCS: 80053; 80061; 82306

== ENCOUNTER → 2021-05-28 16:00 | Outpatient (CLI) | payer BC, SELFPAY ==
--- NOTE | 2021-05-28 16:05 | XR_ITS ---
PROCEDURE: XR KNEE RT 3V CLINICAL INDICATION: PAIN IN RT KNEE COMPARISON: No exams were available for comparison FINDINGS: No fracture or dislocation. No lytic or blastic change. There is normal mineralization. The joint spaces are well-preserved. No significant degenerative/arthritic changes. No erosive changes evident. Other findings:None. IMPRESSION: No acute findings. Dictated by: Noah Garcia MD 05/28/2021 16:57 Noah Garcia MD in OV 05/28/2021 16:57
== END ==
PROVIDERS: PCP Internal Medicine Adolescent Medicine; Visit Provider Internal Medicine Adolescent Medicine
DX: M25.561 Pain in right knee (principal)
CPT/HCPCS: 73562

== ENCOUNTER 2021-07-02 13:00 | Outpatient (RCR) | payer BC, SELFPAY ==
--- NOTE | 2021-05-30 09:31 | HMH.PTOPEV ---
PT Outpatient Evaluation Rehab PT Outpatient Evaluation Start: 05/30/21 06:56 Freq: Status: Active Protocol: Document 05/30/21 06:56 KYLAH (Rec: 05/30/21 09:31 [email or web address] [id number]) Electronically Signed By Sourav Escobar, PT 05/30/21 06:56 Outpatient Therapy Subjective History Subjective History Pt. is a 45 year old female who presents to Outpatient Physical Therapy w/ c/o chronic and constant RLE knee P!, edema, numbness, and ADL/occupational function of traumatic onset since August 2020. Pt. reports she was walking/jogging on her treadmill when she started experiencing P! in her knee. Pt. reports not having symptom relief w/ bracing right after initial DOI. Pt. reports having some symptom relief w/ OTC Motrin, resting, and ice. Pt. reports symptoms worsen w/ prolonged ambulation, standing, and stairs. Pt. also reports symptoms worsen w/ initial standing/first few steps after prolonged sitting. Recent diagnostic imaging( radiograph) negative per pt. report. Pt. denies having injections for current pathology. 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 Current medications include Losartan, Lasix, Motrin, Metoprolol, Xyzal, and Miralax. PMH includes Hypertension, Appendectomy, S/P Sinus Surgery secondary to deviated septum, 2 Sections, Tonsillectomy, Tubal Ligation, and S/P Cervical Vertebrae Osteotomy. Pt. denies history of cancer(self), denies pacemaker, denies latex allergy. Chief Complaint Pain,Stiff,Swelling,Catches/ Locks,Paresthesia,Weakness Symptom Type Ache,Throb,Sharp,Stabbing,
== END 2021-07-30 14:51 | disposition home or self-care (01) ==
LOC: PT.CARL 13:00
PROVIDERS: PCP Internal Medicine Adolescent Medicine; Visit Provider Internal Medicine Adolescent Medicine
DX: M25.561 Pain in right knee (principal)
CPT/HCPCS: 97010; 97014; 97033; 97110; 97140; 97163; 97530; G0283

== ENCOUNTER → 2021-07-17 08:23 | Outpatient (CLI) | payer BC, SELFPAY ==
[2021-07-18 06:11] LABS: Covid-19 Nasal PCR Sendout Lex POSITIVE
== END ==
PROVIDERS: PCP Internal Medicine Adolescent Medicine; Visit Provider Nurse Practitioner
DX: U07.1 COVID-19 (principal)
CPT/HCPCS: C9803; U0004; U0005

== ENCOUNTER → 2021-07-31 07:22 | Outpatient (CLI) | payer BC, SELFPAY ==
--- NOTE | 2021-07-31 07:35 | MR_ITS ---
FINAL REPORT CLINICAL HISTORY: PAIN IN RIGHT KNEE, CHRONIC PAIN. PAIN AND STIFFNESS IN KNEE [id number]. SWELLING INFERIOR TO PATELLA AND ON LATERAL SIDE OF KNEE. MEDIAL SIDED KNEE PAIN. BEEN TO PT. X-RAY 05-28-21 FINDINGS: Multiplanar MR imaging of the right knee was performed without contrast. There is a tear of the posterior horn of the medial meniscus which extends to the posterior root. The lateral meniscus is intact. The anterior and posterior cruciate ligaments are intact. The medial collateral ligament and lateral ligamentous complex are intact. The patellar and quadriceps tendons are intact. There is no evidence of fracture. There is moderate medial compartment chondromalacia. Small joint effusion is seen. The musculature is intact. Small popliteal cyst is noted. IMPRESSION: Tear posterior horn medial meniscus. Moderate medial compartment chondromalacia. Reviewed, Interpreted and Dictated by Oscar Resendiz III, MD Transcribed by Dulce Kan Authenticated by Oscar Resendiz III, MD on 07/31/2021 09:39:47 AM [facility]
== END ==
PROVIDERS: PCP Internal Medicine Adolescent Medicine; Visit Provider Nurse Practitioner Family
DX: M25.561 Pain in right knee (principal); G89.29 Other chronic pain
CPT/HCPCS: 73721

== ENCOUNTER → 2021-09-18 15:07 | Outpatient (CLI) | payer BC, SELFPAY ==
--- NOTE | 2021-09-18 15:11 | XR_ITS ---
FINAL REPORT CLINICAL HISTORY: pre op, hypertension FINDINGS: Two views of the chest were obtained. The heart size and pulmonary vascularity are within normal limits. The mediastinum is normal. No acute pulmonary abnormality is identified. There is no pneumothorax. The bony thorax is intact. IMPRESSION: No active cardiopulmonary disease. Reviewed, Interpreted and Dictated by Oscar Resendiz III, MD Transcribed by Audrey Farley Authenticated by Oscar Resendiz III, MD on 09/18/2021 04:07:[address] [facility]
[2021-09-18 15:20] LABS: Microscopic, Urine URINE MICROSCOPIC (MICROSCOPIC)
[2021-09-18 16:10] LABS: Appearance,Urine CLEAR (Clear); Bilirubin,Urine Negative (Negative); Blood, Urine 1+ (Negative); Color,Urine YELLOW (Yellow); Glucose,Urine (UA) Negative (Negative); Ketones,Urine TRACE (Negative); Leukocyte Esterase,Urine Negative (Negative); Nitrate,Urine Negative (Negative); Protein,Urine Negative (Negative)
[2021-09-18 16:20] LABS: Basophils # 0.1 K/mm3 (0-0.2); Basophils % 0.9 % (0.1-2.0); Eosinophils # 0.2 K/mm3 (0.0-0.4); Eosinophils % 1.4 % (0.1-12.0); Hemoglobin 12.8 g/dL (12.2-16.2); Lymphocytes # 2.2 K/mm3 (0.7-4.5); Lymphocytes % 19.2 % (10-50); Mean Corpuscular HGB Conc 33.6 g/dL (31.8-35.4); Mean Corpuscular Hemoglobin 30.3 pg (27.0-31.2); Mean Corpuscular Volume 90.2 fl (81-99); Mean Platelet Volume 9.2 fl (7.4-10.4); Monocytes # 0.4 K/mm3 (0.1-1.0); Monocytes % 3.6 % (1.7-9.3); Neutrophils # 8.6 K/mm3 (1.8-7.8); Neutrophils % 74.9 % (37.0-80.0); Platelet Count 352 K/mm3 (142-424); Red Blood Count 4.22 M/mm3 (4.20-5.40); Red Cell Distribution Width 13.9 % (11.5-17.5); White Blood Count 11.5 K/mm3 (4.8-10.8)
[2021-09-18 16:43] LABS: Bacteria,Urine 2+ /lpf; WBC,Urine Occasional #/hpf (0-3)
[2021-09-19 13:22] LABS: Urine Pregnancy, HCG Qual. Negative (Negative)
== END ==
PROVIDERS: PCP Internal Medicine Adolescent Medicine; Visit Provider Orthopaedic Surgery
DX: Z01.812 Encounter for preprocedural laboratory examination (principal); Z11.52 Encounter for screening for COVID-19; S83.241D Other tear of medial meniscus, current injury, right knee, subsequent encounter
CPT/HCPCS: 36415; 71046; 81001; 81025; 85025; 87086; 93005; C9803; U0003; U0005

== ENCOUNTER 2021-09-20 10:33 | Day surgery (SDC) | payer BC, SELFPAY ==
[2021-09-19 12:45] VITALS: BMI 36.6
[2021-09-20] VITALS (10 sets, daily range): BP systolic 115–144; BP diastolic 70–97; PULSE 69–84; RESP 16–20; TEMP 36.3–43; O2SAT 96–100
[2021-09-20 11:01] LABS: Urine Pregnancy, HCG Qual. Negative (Negative)
--- NOTE | 2021-09-20 11:16 | P.PN_ITS ---
[facility] Anesthesia Checklist - Patient Identification Patient Identification: Arm Band - Structural Data Admitted From: Home Planned Operative Procedure/s: Phani arthroscopy Consent for Planned Operative Procedure(s) Verified: Yes - NPO Status Verified Time NPO: 00:00 - Additional verifications Anesthesia Reactions: Yes (n/v) Hx Blood Transfusions: No Blood Transfusion Reaction: No - Airway Assessment C-Spine Mobility Assessed: Yes TMJ Mobility Assessed: Yes Dentition: Good Dentition - Neurological Assessment Level of Consciousness: Awake Hx Seizures: No Numbness or tingling in extremities: No - Anesthesia Plan Anesthesia Risk discussed: Yes Anesthesia Plan: Verified ASA Class: II Anesthesia Type: General [facility] History I have reviewed the patient's past medical history: Yes Medical History: Reports:: Gastroesophageal Reflux Disease(GERD), Hypertension Denies:: Cancer, Diabetes Mellitus Type 1, Diabetes Mellitus Type 2, Internal Pacemaker, MRSA, Seizures *Have you ever received a pneumonia vaccine?: No *Have you received a flu vaccine this season?: Yes Other Medical History: Reports: Sinus Problems. Denies: Blood Transfusion Reaction Anesthesia experience/problems:: PONV Laterality Cases: Bilateral: Tonsillectomy Other Surgeries: Yes: Cholecystectomy, , EGD, Other. No: Pacemaker Amputation: No Fractures: No - *Social History Last grade of school completed: Advanced degree Smoking Status: Never smoker Alcohol Intake: never Alcohol Intake Frequency:: a few times a month Substance Use Type: denies use *Occupational Status:: employed Housing: house Household Members: family *Travel in the last 8 weeks: None Family Hx:: No significant family history
--- NOTE | 2021-09-20 15:01 | HMH.ANESI ---
[facility] Anesthesia Record Part I Intake, IV Amount: 1,500 Estimated blood loss (mL): 2 Urine output (mL): 0 Blood Pressure: 122/70 SaO2: 97 Pulse Rate: 81 Respiratory Rate: 20 Temperature: 97.6 F Patient is:: Drowsy, Oral/Nasal airway Stable to PACU at:: 14:58
--- NOTE | 2021-09-20 15:32 | SUR.PHASEI ---
1528- detailed report given to lenka almodovar in post op at this time. 1529- pt in stable condition left in post op with lenka almodovar.
--- NOTE | 2021-09-20 15:48 | HMH.OPNOTE ---
Date of procedure: 09/20/21 Pre-op Diagnosis:: 1. Medial meniscus tear, right knee 2. Osteoarthritis, right knee Post-op Diagnosis:: 1. Complex degenerative tear, Medial meniscus, right knee 2. Osteoarthritis, right knee 3. Pathological medial plica, right knee Procedure performed:: 1. Examination of right knee under anesthesia 2. Partial medial meniscectomy, right knee 3. Chondroplasty, right knee 4. Resection of medial plica, right knee Surgeon:: Robby Campoverde MD Literacy Specialist(s):: Linnea Fung PA-C OFFICE SUPPORT:: Pablo Vasquez (Austin Campos) Anesthesia: LMA Estimated blood loss (mL): 2 Clinical Note:: The patient is a 46-year-old female with RIGHT knee pain following an injury over a year ago which is unresponsive to conservative management and evidence of a medial meniscal tear and early arthritic changes on imaging. Clinically her symptoms are consistent with the above diagnosis. Resection of the torn medial meniscus, chondroplasty and debridement is indicated to relieve the pain and improve function of the knee. Please refer to my office note for full details. Operative findings:: Examination of the RIGHT knee under anesthesia, showed a stable knee joint. There is a small amount of knee joint effusion. Knee range of motion is from 0-130? of flexion. Operative findings showed diffuse grade 2 degenerative changes over the patellofemoral articular surface and grade 2- 3 changes over the medial femoral condyle. A small area of focal full-thickness cartilage loss noted over the medial edge of the trochlea. The lateral compartment is well preserved. The medial meniscus had a complex degenerative tear involving the body and posterior horn. The lateral meniscus was noted to be intact. There is debris and small cartilaginous loose bodies in the knee. The intercondylar notch she is noted to be narrow. The anterior cruciate ligament and posterior cruciate ligaments are intact. A thickened and pathological medial plica was noted. Small amount of debris and mild synovitis was noted. Operative note:: On the day of the procedure the patient and her were met in the preoperative area and positively identified. A physical examination was performed and documented. The limb was marked and initialed by me. I have again discussed the diagnosis, management options including both nonsurgical and surgical. I have discussed the proposed surgical procedure, risks and benefits and alternatives in detail. The complications discussed include but are not limited to infection, injury to nerves and blood vessels, injury to the ligaments and tendons, knee stiffness, arthrofibrosis, incomplete relief, incomplete functional recovery, DVT, PE, CRPS, complications related to anesthesia including heart attack, stroke and even . I have also discussed about the likely need for further surgery in future. I told her that there were no guarantees with surgery; she could be no better or even worse. We also discussed the postoperative recovery and rehabilitation that might be needed. I believe the patient to be well informed with regard to the proposed surgery. I told her that it would take few months for full recovery of the knee after surgery. She expressed a full understanding and wished to proceed with the planned surgery. Patient understood the risks, agreed to proceed with surgery and no guarantees or assurances were given or implied. Patient was brought to the operating room and placed supine on the operating table. All the bony prominences were appropriately padded. A general anesthesia was administered by the metal refiner. A well-padded tourniquet cuff was placed over the right upper thigh. Examination of the right knee under anesthesia was performed. A small amount of knee effusion was noted. Knee range of motion was 0-130 degrees of flexion. Knee joint is noted to be ligamentously stable. The right knee was then prepped and draped in the usual sterile fashi
[2021-09-21 13:06] VITALS: BP 142/80; PULSE 84; TEMP 36.4
--- NOTE | 2021-09-21 13:06 | P.PN_ITS ---
[facility] Anesthesia Record Part II Discharge Time: 15:28 Destination: Surgical Day Care (OP Surgery) PACU nurse assessment reviewed?: Yes Patient Condition:: Good Anesthesia Complications:: None Swallowing reflex intact?: Yes Cyanosis?: No Blood Pressure: 142/80 Pulse Rate: 84 Temperature: 97.5 F Mental Status: Alert & Oriented Pain level:: 0 Nausea and/or vomitting:: None Intake, IV Amount: 0
== END 2021-09-20 15:29 | disposition home or self-care (01) ==
LOC: OR 10:33
PROVIDERS: PCP Internal Medicine Adolescent Medicine; Visit Provider Orthopaedic Surgery
PROC: (CPT 29870; principal; 2021-09-20 11:30)
DX: S83.241A Other tear of medial meniscus, current injury, right knee, initial encounter (principal); M17.11 Unilateral primary osteoarthritis, right knee; M25.561 Pain in right knee; I10 Essential (primary) hypertension; K21.9 Gastro-esophageal reflux disease without esophagitis; Z79.899 Other long term (current) drug therapy; M67.51 Plica syndrome, right knee
CPT/HCPCS: 29881; 29879; 81025; 96374; J2405

== ENCOUNTER 2021-11-07 07:00 | Outpatient (RCR) | payer BC, SELFPAY ==
--- NOTE | 2021-10-03 08:56 | HMH.PTOPEV ---
PT Outpatient Evaluation Rehab PT Outpatient Evaluation Start: 10/03/21 07:57 Freq: Status: Active Protocol: Document 10/03/21 07:57 PDESEROUX (Rec: 10/03/21 08:55 [email or web address] [id number]) Electronically Signed By Sourav Escobar, PT 10/03/21 07:57 Outpatient Therapy Subjective History Subjective History Pt. is a 46 year old female who presents to [facility] Outpatient Physical Therapy Services in [place] for the initial evaluation this date( 10/03/21) w/ c/o acute and constant post-surgical RLE knee P!, stiffness, and edema S/P RLE ATS on 09/20/21. Pt. reports having improvements in the symptom she was having prior to surgery after having the surgery, however, Dr. Campoverde stated there was increased OA in the medial compartment than expected after going in. Pt. describes her current post-surgical symptoms as stiff and a dull ache that worsen w/ prolonged standing and washing dishes and w/ ambulation. Pt. reports having symptom relief w/ resting and icing(3-4x/day for 15-20'). Pt. reports having no post-surgical restrictions per Surgeon. Pt. also reports currently off work, but returning to full duty the first of October. Pt. RTMD . Current medications include Losartan, Lasix, Motrin, Metoprolol, Xyzal, and Miralax. PMH includes Hypertension, Appendectomy, S/ P Sinus Surgery secondary to deviated septum, 2 Sections, Tonsillectomy, Tubal Ligation, and S/P Cervical Vertebrae Osteotomy. Pt. denies history of cancer(self) , denies pacemaker, denies latex allergy. Chief Complaint Pain,Stiff,Swelling,Gives out/ Unstable,Weakness Symptom Typ
== END 2021-11-21 12:58 | disposition home or self-care (01) ==
LOC: PT.CARL 07:00
PROVIDERS: PCP Internal Medicine Adolescent Medicine; Visit Provider Orthopaedic Surgery
DX: S83.241D Other tear of medial meniscus, current injury, right knee, subsequent encounter (principal); M94.261 Chondromalacia, right knee
CPT/HCPCS: 97010; 97014; 97110; 97163; 97530; G0283

== ENCOUNTER → 2022-05-28 08:38 | Outpatient (CLI) | payer BC, SELFPAY | PROVIDERS: PCP Internal Medicine Adolescent Medicine; Visit Provider Internal Medicine Adolescent Medicine | DX: G47.33 Obstructive sleep apnea (adult) (pediatric) (principal); R06.83 Snoring; R40.0 Somnolence | CPT/HCPCS: G0399 ==

== ENCOUNTER → 2023-05-13 08:34 | Outpatient (CLI) | payer BC, SELFPAY ==
--- NOTE | 2023-05-13 08:44 | XR_ITS ---
FINAL REPORT CLINICAL HISTORY: pain in rt heel COMPARISON: None FINDINGS: RIGHT FOOT: Three views show no evidence of acute displaced fracture or dislocation of the visualized bony architecture. The joint spaces appear normal. There is minimal calcaneal spurring present. IMPRESSION: Unremarkable exam. Reviewed, Interpreted and Dictated by Mahamed Pratt MD Transcribed by Svetlana Degroot Authenticated and [facility]
== END ==
PROVIDERS: PCP Internal Medicine Adolescent Medicine; Visit Provider Nurse Practitioner Family
DX: M79.671 Pain in right foot (principal)
CPT/HCPCS: 73630

== ENCOUNTER → 2023-05-20 08:28 | Outpatient (CLI) | payer BC, SELFPAY ==
--- NOTE | 2023-05-20 08:31 | XR_ITS ---
FINAL REPORT CLINICAL HISTORY: Foot Pain FINDINGS: 3 weightbearing views of the left foot were obtained. There is pes planus deformity. There is a plantar calcaneal spur. There is no acute fracture or dislocation. The joint spaces are intact. The soft tissues are unremarkable. IMPRESSION: No acute process. Reviewed, Interpreted and Dictated by Oscar Resendiz III, MD Transcribed by Ethan Marks Authenticated and . [facility]
== END ==
PROVIDERS: PCP Internal Medicine Adolescent Medicine; Visit Provider Podiatrist
DX: M79.672 Pain in left foot (principal)
CPT/HCPCS: 73630

== ENCOUNTER 2023-08-20 14:26 | Outpatient (CLI) | payer BC, SELFPAY ==
--- NOTE | 2023-08-20 14:26 | MR_ITS ---
FINAL REPORT CLINICAL HISTORY: ankle pain/achilles tendinitis FINDINGS: Multiplanar MR imaging of the right ankle was performed without contrast. No fracture is identified. There is mild bone marrow edema in the inferior aspect of the calcaneal tuberosity. A plantar calcaneal spur is present. No osteochondral lesion is identified. The ligaments are intact without evidence of injury. There is mild peroneus longus and posterior tibial tenosynovitis. There is mild enlargement of the distal Achilles tendon consistent with mild Achilles tendinitis. No Achilles tendon tear is identified. There is posterior plantar fasciitis with a moderate partial tear at its insertion and adjacent soft tissue edema. Soft tissue edema is seen in the heel pad. No significant joint effusion is seen. The musculature is intact. There is no evidence of soft tissue mass or cyst. IMPRESSION: Posterior plantar fasciitis with a moderate partial tear and adjacent soft tissue edema. Mild peroneus longus and posterior tibial tenosynovitis. Mild distal Achilles tendinitis without evidence of tear. Authenticated and [facility]
--- NOTE | 2023-08-20 14:26 | MR_ITS ---
FINAL REPORT CLINICAL HISTORY: foot pain FINDINGS: Multiplanar MR imaging of the right foot was performed without contrast. There is abnormal signal in the proximal fourth metatarsal, favor enchondroma. The flexor and extensor tendons are intact. No ligamentous injury is identified. The musculature is intact. There is posterior plantar fasciitis with a moderate partial tear at the insertion. No soft tissue mass or cyst is identified. IMPRESSION: Posterior plantar fasciitis with moderate partial tear at the insertion. Abnormal signal in the proximal fourth metatarsal, favor enchondroma. Reviewed, Interpreted and Dictated by Oscar Resendiz III, MD Transcribed by Shannon Davis Authenticated and [facility]
== END 2023-08-20 23:59 ==
LOC: RAD 14:26
PROVIDERS: PCP Internal Medicine Adolescent Medicine; Visit Provider Nurse Practitioner
DX: M79.671 Pain in right foot (principal); M76.61 Achilles tendinitis, right leg; M62.9 Disorder of muscle, unspecified
CPT/HCPCS: 73718; 73721

== ENCOUNTER 2023-10-29 07:00 | Outpatient (RCR) | payer BC, SELFPAY ==
--- NOTE | 2023-09-03 08:56 | HMH.PTOPEV ---
PT Outpatient Evaluation Rehab PT Outpatient Evaluation Start: 09/03/23 07:07 Freq: Status: Active Protocol: Document 09/03/23 07:07 PDESEROUX (Rec: 09/03/23 08:56 PDESEROUX [id number]) E-signed By Sourav Escobar, PT Outpatient Therapy Subjective History Subjective History Pt. is a 48 year old female who presents to [facility] Outpatient Physical Therapy Services in [place] for the initial evaluation this date(09/03/23) w/ c/o chronic and constant RLE ankle/ft. P!, edema, and limp of traumatic onset since February 2023. Pt. reports initial onset of injury of traumatic origin was secondary to stepping in a hole and twisting the ankle while mowing. Pt. reports the ankle was bothering me some after the [employer]AN [facility]LOS. Pt. then reports in 2022 pt. was descending steps from a pt.'s house when she felt a tear in the back of her heel. Recent diagnostic imaging indicates no fx.(per pt. report), but partial tear of PF and tenosynovitis of peroneal and post. tib. tendons. Pt. reports symptoms worsened going without CAM bt. and w/ exercises for 1.5 month. Pt. reports being instructed to don boot when she is on her feet. 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 Pt. reports having symptom relief for a few days w/ steroid injection. Pt. RTMD 10/06/23. Current medications include Tylenol PRN, GLMP topical cream, Losartan, Lasix, Motrin, Metoprolol, Xyzal, Metamucil, Semaglutide, and Miralax. PMH includes Hypertension, Appendectomy, S/P Sinus Surgery secondary to deviated septum, 2 Sections, Tonsillectomy, Tubal Ligation, S/P RLE knee meniscectomy, and S/P Cervical Vertebrae Osteotomy. New diagnosis of cancer in past 12 No months? Chief Complaint Pain,Stiff,Swelling Symptom Type Ache,Throb,Dull,Burning Symptoms Relieved By Rest/Positioning,Ice,Brace/ Support,Prescription Meds Symptoms Aggravated By Standing,Physical Activity, Walking Prior Functional Limitations None Current Functional Limitations Standing,Walking,Stairs Symptom Description Constant and Continuous, Activity Dependent Level of pain today (0-10) 1 Pain scale - at its best (0-10) 1 Pain scale - at its worst (0-10) 7 Ankle/Foot Eval Gait Observation General Gait Pattern Observation Antalgic Gait,Decrease Weight Bear (R),Decrease Stride Lngth (L) Assistive Device Ambulation Assistive Device None Palpation Tenderness right Ankle/Foot Palpation Findings Tenderness Ankle/Foot Palpation Overall Comment grade 3 +TTP to achilles/ peroneal/post. tib. tendons and PF insertion calca ATF TTP negative PTF TTP positive CF TTP negative Deltoid ligament TTP negative ROM Ankle/Foot Dorsiflexion w/Knee Extended -8 Active Range Motion (degrees) Ankle/Foot Dorsiflexion w/Knee Extended -20 Passive Range (degrees) Ankle/Foot Plantar Flexion Active Range WNL of Motion (degrees) Ankle/Foot Eversion Active Range of 8 Motion (degrees) Ankle/Foot Eversion Passive Range of 12 Motion (degrees) Ankle/Foot Inversion Active Range of WNL Motion (degrees) Ankle/Foot ROM Limitations Soft Tissue Tightness,Muscle Tone,Pain Accessory Movements Ankle Accessory Movements that Elicit Calcaneocuboid [place] Symptoms MMT right Ankle Dorsiflexion Strength Grade 4- Good- Ankle Plantarflexion Strength Grade 4 Good Foot Eversion Strength Grade 4- Good- Foot Inversion Strength Grade 4- Good- Ankle Dorsiflexors Muscle Tone Moderate Hypertonicity Description Special Tests Ankle Anterior Drawer Test Negative Right Ankle Posterior Drawer Test Positive Right Outpatient Therapy Assessment Impairments Problems/Impairmments Palpation Tenderness,Impaired Range of Motion,Impaired Strength,Impaired Gait Pattern ,Impaired Walking,Impaired Standing,Impaired Stair Climbing,Impaired Incline Stepping,Impaired Stepping on Uneven Surface,Impaired Recreational Activities, Impaired Work Activities, Increased Edema,Subjective C/O Pain,Impaired Self Care/Self Management Prognosis Rehab Potential Good Comment w/ HEP compliancy Clinical Impression Consistent with Diagnosis Yes Consistent with R partial PF tear Short Term Goals Number of Weeks 2 Decreased Palpation Tenderness Yes: grade 1-2 +TTP to TTP assessment above Decrease Subjective C/O Pain Yes: worse:10/23 Patient to be Ind w/ HEP Yes Long-Term Goals Number of Weeks 4-6 Decreased Palpation Tenderness Yes: grade 1 +TTP to TTP assessment above Increase Range of Motion Yes: RLE ankle/ft. A/PROM WNL grossly Increase Strength Yes: RLE ankle/ft. MMT scores 4+ to 5/5 grossly Improve Gait Pattern without Assistive Yes Device Increase Ability to Walk Yes Increase Ability to Stand Yes Improve Ability to Climb Stairs Yes Improve Incline Stepping Ability Yes Improve Ability to Step on Uneven Yes Surfaces Return to Recreational Activities Yes: Pt. will return to treadmill amb. for health and wellness w/o difficulty Improve Tolerance to Work Activities Yes Improve LEFI Score Yes Decrease Subjective C/O Pain Yes: worse:1-2/10 Improve Self Care/Self Management Yes Patient to be Ind w/ Advanced HEP Yes Outpatient Therapy Plan of Care Treatment Plan May Include Therapeutic Exercise Including Home Yes Exercise Program Manual Therapy Techniques Yes Neuromuscular Re-education Yes Therapeutic Activities to Return to Yes Previous Functional/Work Level Gait Training Yes ADL/Self Care Education Yes Dry Needling Yes Thermal Modalities Yes Electrical Stimulation Yes Ultrasound/Phonophoresis Yes Iontophoresis Yes Vasopneumatic Compression Pump Yes Massage Yes Eval/Re-Eval Yes Frequency Times per week 2 Duration Number of Weeks 4-6 Addendums This patient is a candidate for social No or vocational rehab? Patient/Guardian verbally acknowledges Yes understanding of treatment program and consents to further treatment? Patient/Guardian verbally acknowledges Yes understanding of diagnosis, prognosis and goals for treatment? Eval Complexity PT Charges 01429 - Low Complexity Shoulder/Elbow Eval Shoulder Objective Measurements Elbow Objective Measurements PHYSICIAN CERTIFICATION: I certify the specified therapy services for Ashlyn Hazel are required, authorized, and reviewed every 30 days.
== END 2023-11-04 17:55 | disposition home or self-care (01) ==
LOC: PT 07:00
PROVIDERS: Visit Provider Podiatrist
DX: M25.571 Pain in right ankle and joints of right foot (principal); S93.491S Sprain of other ligament of right ankle, sequela; M62.9 Disorder of muscle, unspecified; M65.9 Synovitis and tenosynovitis, unspecified
CPT/HCPCS: 97010; 97014; 97035; 97110; 97112; 97140; 97163; 97164; 97530; G0283

== ENCOUNTER 2024-07-14 17:57 | Emergency (ER) | payer BC, SELFPAY ==
[2024-07-14 17:58] VITALS: BP 158/94; PULSE 95; RESP 17; TEMP 36.9; O2SAT 100; BMI 36.6
--- NOTE | 2024-07-14 18:23 | HMH.EDGENADL ---
Discharge Plan Disposition Patient Disposition: Home, Self-Care Condition: Good Prescriptions Prescriptions: No Action omeprazole 20 mg capsule,delayed release(DR/EC) PO methylprednisolone [Medrol (Hans)] 4 mg tablets,dose pack 4 mg PO PER PKG DIR Qty: 21 0RF semaglutide 0.25 mg or 0.5 mg (2 mg/3 mL) pen injector 0.5 mg SQ WEEKLY levocetirizine 5 MG tablet 5 mg PO DAILY furosemide 20 MG tablet 20 mg PO DAILY losartan 100 MG tablet 100 mg PO DAILY metoprolol succinate 25 MG tablet extended release 24 hr 25 mg PO DAILY psyllium husk 0.52 GM capsule 0.52 g PO DAILYDM ibuprofen 200 MG tablet 200 mg PO Q6HP PRN (Reason: Mild To Moderate Pain) polyethylene glycol 3350 119 GM powder 17 g PO DAILY Referrals Follow up/Referrals: Bijan Hubbard MD [Primary Care Provider] - See instructions Activity Restrictions/Add. Instructions Additional Instructions/Restrictions: Continue to take the Zofran or Phenergan at home to help with symptoms. Continue to hydrate well by drinking plenty of fluids, including Pedialyte, sugar-free Gatorade and water. Follow-up with your primary care physician if symptoms continue or if you become concerned for your health for any reason, return to the emergency department for evaluation. Clinical Impressions Clinical Impression: Nausea & vomiting Instructions Patient Instructions: DI for Nausea -- Adult Print Language Print Language: Swedish Discharge ED Provider: Maico [facility] Adult HPI General Chief complaint: Nausea/Vomiting/Diarrhea Stated complaint: nausea vomiting, abd pain Time Seen by Provider: 07/14/24 18:06 Mode of Arrival: Ambulatory Source of Information: Patient Limitations: No Limitations History of Present Illness HPI narrative: Ashlyn Hazel is a 48F with a past medical history of HTN who presents to the emergency department for complaints of nausea and vomiting that began at 0200 this morning. Patient states that she has had multiple episodes of nonbilious nonbloody vomiting that has now turned into dry heaving refractory to Phenergan and Zofran at home. She reports some mild upper abdominal discomfort associated with it but denies any dysuria or hematuria. She denies any constipation or diarrhea. She has not had any fevers and denies any known sick contacts. She does note that she takes semaglutide for weight loss, which she has taken for about a year but had not taken it for about a week due to the pharmacy not having it. She started taking it again last night but is never had any symptoms like this from it. She denies any history of diabetes. Related Data Home Medications ?Medication ?Instructions ?Recorded ?Confirmed levocetirizine 5 mg tablet 5 mg PO DAILY ALLERGIES 02/07/19 10/06/23 polyethylene glycol 3350 17 17 g PO DAILY bowel movements 10/06/19 10/06/23 gram/dose oral powder furosemide 20 mg tablet 20 mg PO DAILY fluid retention 11/04/19 10/06/23 losartan 100 mg tablet 100 mg PO DAILY bp 11/04/19 10/06/23 metoprolol succinate 25 mg 25 mg PO DAILY High blood pressure 09/19/21 10/06/23 tablet,extended release 24 hr psyllium husk 0.52 gram capsule 0.52 g PO DAILYDM bowel habits 09/19/21 10/06/23 ibuprofen 200 mg tablet 200 mg PO Q6HP PRN Mild To 09/20/21 10/06/23 Moderate Pain omeprazole 20 mg capsule,delayed mg PO 06/02/23 10/06/23 release semaglutide 0.25 mg or 0.5 mg (2 0.5 mg SQ WEEKLY 08/25/23 10/06/23 mg/3 mL) subcutaneous pen injector Previous Rx's ?Medication ?Instructions ?Recorded methylprednisolone 4 mg tablets in 4 mg PO PER PKG DIR #21 tabs 06/02/23 a dose pack (Medrol (Hans)) Allergies Allergy/AdvReac Type Severity Reaction Status Date / Time vancomycin Allergy Rash Verified 10/06/23 13:14 [facility] Disclaimer: The information contained in this section may have been updated after the patient was seen, as this information can be updated by other users. Surgical History (Updated 07/14/24 @ 18:40 by Arianne Haynes RN) Hx of tubal ligation Family History Mother Asthma Coronary artery disease Hypertension Kidney disease Grandmother Cancer Grandfather Cancer Father Hypertension Stroke Social History Smoking Status: Never smoker alcohol intake: current alcohol intake frequency: a few times a month substance use type: denies use current occupational status: employed Travel in the last 8 weeks: None household members: family housing: house current occupation: Hospice - RN current occupational exposures/hazards: No caffeine: Yes Have you lived/traveled outside [place] in past 30 days?: No Contact w/someone who lives/traveled outside US past 30 days?: No Exposure to someone with infectious disease in past 14 days?: No Do you have a fever (greater than 100.4 F or 38 C)?: No Have you tested positive for COVID-19: No Exposed to someone with COVID-19 in past 14 days?: No Do you have a sore throat?: No Do you have a cough?: No Do you have any weakness?: No Do you have any diarrhea?: No Are you experiencing any unusual bleeding?: No Do you have any muscle aches/pain?: No Do you have any abdominal pain?: Yes Are you experiencing loss of taste or smell?: No Other Medical History Have you received the Flu Vaccine for this season: Yes Have you received the Pneumonia Vaccine: No ROS Obtained: Yes Systems reviewed as appropriate & no additional complaints except as documented Physical Exam General General appearance: alert and in no apparent distress Head Head exam: atraumatic Eye Eye exam: Present normal appearance ENT ENT exam: Present normal external ear exam Neck Neck exam: Present full ROM Chest Chest inspection: Present symmetric chest wall rise Respiratory Respiratory exam: Present normal lung sounds bilaterally; Absent respiratory distress, wheezes or stridor Cardiovascular Cardiovascular exam: Present regular rate and normal rhythm Abdominal Exam Abdominal exam: Present soft and tenderness (mild epigastric and subcostal tenderness); Absent guarding Extremities Exam Extremities exam: Present normal inspection Back Exam Back exam: Present normal inspection Neurological Exam Neurological exam: Present alert and oriented X3 Psychiatric Psychiatric exam: Present normal affect Skin Skin exam: Present warm and dry Medical Decision Making Medical Records Screening: Per USPSTF and CDC recommendations, given the prevalence of disease in our region, it is our hospital?s policy to screen for HIV and viral Hepatitis for all patients aged 18 and over and those with ongoing risk factors. Mayank Inquiry Pt receiving controlled substance: No Vital Signs: 07/14/24 17:58 07/14/24 19:30 07/14/24 20:58 Temperature 98.4 F 97.9 F Temperature Source Oral Pulse Rate 97 H 87 Pulse Rate [Left Radial] 95 H Respiratory Rate 17 14 20 Blood Pressure 117/77 122/76 Blood Pressure [Right Arm] 158/94 H Blood Pressure Mean [Right Arm] 115 Blood Pressure Source [Right Arm] Automatic Cuff Blood Pressure Position [Right Arm] Sitting 02 Sat by Pulse Oximetry 100 98 Oxygen Delivery Method Room Air Room Air Lab Data Lab Results 07/14/24 18:35: WBC 14.5 H, RBC 4.71, Hgb 13.6, Hct 41.5, MCV 88.1, MCH 28.9, MCHC 32.8, RDW 13.1, Plt Count 352, MPV 10.9 H, Neut % (Auto) 92.4 H, Lymph % (Auto) 5.0 L, [place] % (Auto) 2.0, Eos % (Auto) 0.1, Baso % (Auto) 0.1, Neut # (Auto) 13.4 H, Lymph # (Auto) 0.7, [place] # (Auto) 0.3, Eos # (Auto) 0.0, Baso # (Auto) 0.0, Total Counted 100, Neutrophils % (Manual) 93 H, Lymphocytes % (Manual) 6 L, Monocytes % (Manual) 1 L, Platelet Estimate Normal, Hypochromasia 1+, Ovalocytes 1+, Sodium 139, Potassium 4.4, Chloride 102, Carbon Dioxide 27, Anion Gap 14.4, BUN 16, Creatinine 0.50 L, Estimated Creat Clear 193, Estimated GFR 131, Est GFR ( Amer) 158, Glucose 140 H, Calcium 9.7, Total Bilirubin 1.2, AST 43 H, ALT 61, Alkaline Phosphatase 206 H, Troponin I < 0.01, Total Protein 8.0, Albumin 4.8, Globulin 3.2, Albumin/Globulin Ratio 1.5, Lipase 43, Serum HCG, Qual Negative, HCV Ab ЕКАТЕРИНА w/Rflx PCR Qn Negative, HIV Ag/Ab Combo Qual Negative 07/14/24 18:35 07/14/24 18:35 Orders (Tests/Meds): ED MEDICATIONS Discontinued Medications Generic Name Dose Route Start Last Admin Trade Name Freq PRN Reason Stop Dose Admin Diphenhydramine HCl 25 mg 07/14/24 19:02 07/14/24 19:13 Diphenhydramine 50mg/Ml Vial IV 07/14/24 19:03 25 mg ONCE ONE Administration Droperidol 2.5 mg 07/14/24 19:02 07/14/24 19:13 Droperidol 5mg/2ml Vial IV 07/14/24 19:03 2.5 mg ONCE ONE Administration Lactated Ringer's 1,000 mls @ 999 mls/hr 07/14/24 18:22 07/14/24 18:49 Lactated Ringer's 1000 Ml Bag IV 07/14/24 19:22 999 mls/hr .Q1H1M ONE Administration Ondansetron HCl 4 mg 07/14/24 18:22 07/14/24 18:49 Ondansetron 4mg/2ml Vial IV 07/14/24 18:23 4 mg ONCE ONE Administration ORDERS Category Date Time Status CBC w/Auto Diff [Complete Blood Count Auto Diff] Stat Lab 07/14/24 18:35 Completed CMP [Comprehensive Metabolic Panel] Stat Lab 07/14/24 18:35 Completed HIV Combo Stat Lab 07/14/24 18:35 Completed Hepatitis C Ab Qual. W/ RFX Stat Lab 07/14/24 18:35 Completed Lipase Stat Lab 07/14/24 18:35 Completed Serum [HCG Qualitative, Serum] Stat Lab 07/14/24 18:35 Completed Troponin I Stat Lab 07/14/24 18:35 Completed ECG Data Tracing #1: I reviewed this ECG and interpreted as documented below: EKG interpreted by me personally at 1903. No ST elevation or elevation. Normal sinus rhythm. No ST elevation or depression. QTc 412. Medical Decision Narrative: Ashlyn Hazel is a 48-year-old female with a past medical history of hypertension, cholecystectomy who presents to the emergency department for complaints of nausea and vomiting. Patient states that she developed nonbilious nonbloody vomiting at 0200 this morning and said multiple episodes since. She is now dry heaving. She has tried Phenergan and Zofran at home without relief. She states that this has happened a couple times in the past but resolved with antiemetics. She does note that she started her semeglutide last night after being off of it for about a week but has never had symptoms like this in the past from it. Patient reports some mild upper abdominal discomfort but denies any chest pain or shortness of breath. She states that she occasionally drinks alcohol and does not do any recreational drug use, including marijuana. On report, patient's pulse is 95 bpm, mildly hypertensive with blood pressure 158/94, breathe comfortably on room air with oxygen saturation at 100% SpO2. Afebrile. On exam, patient appears ill but nontoxic. She has mild subcostal tenderness bilaterally and mild epigastric tenderness. Abdomen is soft and nonperitoneal neck. Cardiopulmonary exam is unremarkable. Differential diagnosis includes, but is not limited to: Viral gastritis, peptic ulcer disease, acute pancreatitis, ACS, among others. Patient's workup in the emergency department included: Lipase, CBC with differential, CMP, test, EKG, troponin. Patient was treated with 1 L of lactated ringer and 4 mg of IV Zofran for symptomatic relief. Considerations were given to obtaining CT abdomen pelvis with IV contrast, however patient was not significantly tender on exam is felt that radiation exposure outweighs potential benefits at this time. This was discussed with the patient she was in agreement to defer CT imaging at this time. Patient's workup demonstrated non-specific leukocytosis of 14.5 with left shift, CMP unremarkable and non-actionable with no HUMZA or electrolyte derangements. Normal anion gap. Mildly elevated AST of 43. Troponin <0.01, lipase normal at 43, negative test. See EKG interpretation above. Patient continued to have some n/v and was given IV droperidol 2.5mg and 25mg of Benadryl. Patient had significant relief of her symptoms after this. Given this and her unremarkable workup here in the ED, she is appropriate for discharge. She was encouraged to continue antiemetics at home as well as aggressive hydration. Plan to follow up with her PCP. All questions were answered. She was in agreement with this plan. She was then discharged from the emergency department in stable condition. Critical Care Critical Care Time Critical Care Time: No
[2024-07-14 18:44] LABS: Basophils % 0.1 % (0.1-2.0); Eosinophils % 0.1 % (0.1-12.0); Hematocrit 41.5 % (37.0-47.0); Hemoglobin 13.6 g/dL (12.2-16.2); Lymphocytes # 0.7 K/mm3 (0.7-4.5); Mean Corpuscular HGB Conc 32.8 g/dL (31.8-35.4); Mean Corpuscular Hemoglobin 28.9 pg (27.0-31.2); Mean Corpuscular Volume 88.1 fl (81-99); Mean Platelet Volume 10.9 fl (7.4-10.4); Monocytes # 0.3 K/mm3 (0.1-1.0); Neutrophils # 13.4 K/mm3 (1.8-7.8); Neutrophils % 92.4 % (37.0-80.0); Platelet Count 352 K/mm3 (142-424); Red Blood Count 4.71 M/mm3 (4.20-5.40); Red Cell Distribution Width 13.1 % (11.5-17.5); White Blood Count 14.5 K/mm3 (4.8-10.8)
[2024-07-14 18:46] LABS: MANUAL DIFFERENTIAL MANUAL DIFFERENTIAL (MANUAL DIFF)
[2024-07-14] MEDS: ONDANSETRON 4MG/2ML VIAL 4 MG IV (18:49)
[2024-07-14] MEDS: LACTATED RINGERS 1000ML 1,000 ML 999 ML IV (18:49)
[2024-07-14 18:52] LABS: Albumin Level 4.8 g/dl (3.5-5.0); Chloride 102 mmol/L (98-107); Potassium 4.4 mmoL/L (3.5-5.1); Sodium 139 mmol/L (136-145)
[2024-07-14 18:54] LABS: Alanine Aminotransferase 61 U/L (12-78); Aspartate Amino Transferase 43 U/L (14-36); Blood Urea Nitrogen 16 mg/dl (7-17); Creatinine Clearance Estimated 193 mL/min (50-200); Estimated Glomerular Filt Rate 131 ml/min (>60); GFR (African American) 158 ML/MIN (>60); Hypochromasia 1+; Lymphocytes % 6 % (10-50); Monocytes % 1 % (2-9); Neutrophils % 93 % (42-76); Ovalocytes 1+; Platelet Estimate Normal; Total Cells Counted 100
[2024-07-14 18:55] LABS: Albumin/Globulin Ratio 1.5 (1.1-1.8); Alkaline Phosphatase 206 U/L (38-126); Anion Gap 14.4 mEq/L (5-15); Bilirubin,Total 1.2 mg/dl (0.2-1.3); Calcium 9.7 mg/dl (8.4-10.2); Carbon Dioxide 27 mmol/L (22.0-30.0); Globulin 3.2 g/dL (1.3-3.2); Glucose 140 mg/dl (74-100); Lipase 43 U/L (23-300)
--- NOTE | 2024-07-14 18:59 | ECG_ITS ---
APPROVED REPORT Exam: Resting ECG HR:94 bpm ECG Measurements Heart Rate 94 AXES CA 216 P 22 QRSd 86 QRS -12 QT 361 T 0 QTc 412 Conclusion SINUS RHYTHM WITH FIRST DEGREE AV BLOCK WITH OCCASIONAL SUPRAVENTRICULAR PREMATURE COMPLEXES LOW QRS VOLTAGE IN PRECORDIAL LEADS [QRS DEFLECTION < 1.0 mV IN CHEST LEADS] MINIMAL VOLTAGE CRITERIA FOR LVH, CONSIDER NORMAL VARIANT [MEETS CRITERIA IN ONE OF: R(aVL), S(V1), R(V5), R(V5/V6)+S(V1)] POSSIBLE ANTERIOR MYOCARDIAL INFARCTION , PROBABLY OLD [30 ms Q WAVE IN V3/V4, OR R < 0.2 mV IN V4] ABNORMAL ECG UNCONFIRMED REPORT Electronically signed by : KEON DAVALOS, 07/17/2024 00:44:02
[2024-07-14 19:08] LABS: Troponin I < 0.01 ng/ml (0.00-0.034)
[2024-07-14] MEDS: droPERidol 5MG/2ML VIAL 2.5 MG IV (19:13)
[2024-07-14] MEDS: diphenhydrAMINE 50MG/ML VIAL 25 MG IV (19:13)
[2024-07-14 19:22] LABS: HCG Qualitative, Serum Negative (Negative)
--- NOTE | 2024-07-14 19:23 | PC.NURSE ---
Report received from Jocelin RN Pt resting quietly in bed Skin pale wam and dry Speech clear and appropriate. Resp full and easy at bedside Pt in sinus rhythm per continuos heart monitor
[2024-07-14 19:30] VITALS: BP 117/77; PULSE 97; RESP 14; O2SAT 98
[2024-07-14 20:00] LABS: HIV Combo NEGATIVE (Negative)
[2024-07-14 20:08] LABS: Hepatitis C Ab Qual. W/ RFX NEGATIVE (Negative)
[2024-07-14 20:58] VITALS: BP 122/76; PULSE 87; RESP 20; TEMP 36.6; O2SAT 97
== END 2024-07-14 21:00 | disposition home or self-care (01) ==
PROVIDERS: Emergency Provider Student in an Organized Health Care Education/Training Program; PCP Internal Medicine Adolescent Medicine
DX: R11.2 Nausea with vomiting, unspecified (principal); R10.10 Upper abdominal pain, unspecified; I10 Essential (primary) hypertension
CPT/HCPCS: 80053; 83690; 84484; 84703; 85007; 85025; 85027; 86803; 87389; 93005; 96361; 96374; 96375; 99283; J1200; J1790; J2405; J7120